=== PATIENT | male | born 1955 | race Caucasian/White ===

== ENCOUNTER 2018-11-26 22:29 | Emergency (ER) | payer BC ==
[~2018-11-26] VITALS: Ht 175.3 cm; Wt 108.9 kg
[2018-11-26] MEDS ORDERED: IPRATROPIUM BROMIDE 0.5 MG/2.5 ML NEBU NEB ONE (23:30)
[2018-11-26] MEDS ORDERED: ALBUTEROL SULFATE 2.5 MG/3 ML NEBU NEB ONE (23:30)
[2018-11-26] MEDS ORDERED: predniSONE 10 MG TABLET PO ONE (23:30)
[2018-11-26] MEDS ORDERED: IPRATROPIUM BROMIDE 0.5 MG/2.5 ML NEBU ONE (23:37)
[2018-11-26] MEDS ORDERED: ALBUTEROL SULFATE 2.5 MG/ 0.5 ML NEBU ONE (23:37)
--- NOTE | 2018-11-26 23:45 | NUR ---
STAPLE SIDE LASTER AT BEDSIDE PT MONITORED ACCORDINGLY PT WAS SHEREEN GUY FR HOME C/O COUGH AND SOB UPON EXERTION Addendum: 11/26/18 at 2346 by HENRIQUE DENIES FEVERS/CHILLS +TRAVEL TO [facility] THIS MONTH DENIES GETTING SICK WHILE TRAVELLING ABLE TO CLEAR SECRETIONS ABLE TO SPEAK CLEAR AND COMPLETE SENTENCES
[2018-11-26] MEDS ORDERED: predniSONE 20 MG TABLET ONE (23:57)
[2018-11-26 23:59] LABS: BASOPHILS # (AUTO) 0.1 K/uL (0.0-8.0); BASOPHILS % (AUTO) 1.1 % (0.0-2.0); EOSINOPHILS # (AUTO) 0.6 K/uL (0.0-0.7); EOSINOPHILS % (AUTO) 8.2 % (0.0-7.0); HEMOGLOBIN 14.8 g/dL (12.5-16.3); LYMPHOCYTES # (AUTO) 2.7 K/uL (20.0-40.0); LYMPHOCYTES % (AUTO) 35.7 % (20.5-51.5); MEAN CORPUSCULAR HEMOGLOBIN 30.5 uug (23.8-33.4); MEAN CORPUSCULAR HGB CONC 34 g/dL (32.5-36.3); MEAN CORPUSCULAR VOLUME 88.8 fL (73.0-96.2); MONOCYTES # (AUTO) 0.6 K/uL (2.0-10.0); MONOCYTES % (AUTO) 7.7 % (0.0-11.0); NEUTROPHILS # (AUTO) 3.6 K/uL (1.8-8.9); NEUTROPHILS % (AUTO) 47.3 % (38.5-71.5); PLATELET COUNT (AUTO) 210 K/uL (152-348); RED BLOOD CELL COUNT(AUTO) 4.84 MIL/uL (4.06-5.63); WHITE BLOOD COUNT (AUTO) 7.6 K/uL (3.6-10.2)
[2018-11-27 00:06] LABS: CREATININE 1.1 mg/dL (0.6-1.3); POTASSIUM 3.9 mmol/L (3.5-5.1)
[2018-11-27 00:19] LABS: BILIRUBIN,DIRECT 0.1 mg/dL (0.0-0.2); BILIRUBIN,TOTAL 0.3 mg/dL (0.2-1.0); TOTAL PROTEIN, SERUM 7.9 g/dL (6.4-8.2)
--- NOTE | 2018-11-27 01:10 | NUR ---
Patient discharged to home in stable conditon. Written and verbal after care instructions given. Patient verbalizes understanding of instructions. AMBULATORY W/ STABLE GAIT ALL BELONGINGS W/ PT
[2018-11-27 02:39] VITALS: BP 155/86
== END 2018-11-27 01:00 | disposition home or self-care (01) ==
LOC: ER 22:39
DX: J02.9 Acute pharyngitis, unspecified (principal); Z87.891 Personal history of nicotine dependence
CPT/HCPCS: 36415; 71045; 80048; 80076; 83880; 85025; 87040 ×2; 93005; 94640; 99284; J7512; A4663; J3590